=== PATIENT | male | born 1960 ===

== ENCOUNTER 2024-11-06 08:45 | Emergency (ER) | payer OTHER, SELFPAY ==
[2024-11-06 08:48] VITALS: BP 143/74
--- NOTE | 2024-11-06 09:43 | ED.GENMED ---
History of Present Illness
<Marsha Parry PA-C - Last Filed: 11/06/24 16:55>
General
Chief Complaint: Skin Problem
Source: patient
Exam Limitations: none
Time Seen by Provider: 11/06/24 09:27
History of Present Illness
History of Present Illness:
64yoM with a history of type 2 diabetes presenting for evaluation of right groin pain. Symptoms initially began 4 days ago and have progressively worsened. He was seen by his PCP yesterday and was told that he has an abscess and cellulitis and was
advised to go to the ED for evaluation. Patient states the surrounding redness has expanded since yesterday. He is having significant pain with movement of the R hip. He denies any fevers, chills, body aches, or difficulty urinating. Blood sugars
have reportedly been controlled at home.
Phy Exam
<Marsha Parry PA-C - Last Filed: 11/06/24 16:55>
General Physical Exam
General Presentation: well appearing and no apparent distress
General age: appears stated age
General Skin: warm and dry
General Habitus: normal
General Mental: alert
ENT Exam
ENT Exam: normocephalic
Pulmonary Exam
Pulmonary Exam: no respiratory distress
Gastrointestinal Exam
Gastrointestinal Exam: non tender, soft and non distended
Neurological Exam
Neurological Exam: alert
Skin Exam
Skin Exam: warm/dry and other (Focal area of swelling to the R inguinal region with central fluctuance consistent with an abscess. There is some surrounding cellulitis present in the mid thigh. No perineal involvement. No crepitus or pain out of
proportion. )
Psychiatric Exam
Psychiatric Exam: normal mood/affect
Course
<Marsha Parry PA-C - Last Filed: 11/06/24 16:55>
Orders/Labs/Results
Orders:
Orders
11/06/24 09:38
CT Pelvis With Iv Contrast Urgent
Comment:
Reason For Exam: R groin abscess
11/06/24 09:52
Complete Blood Count/With Diff Urgent
Comprehensive Metabolic Panel Urgent
11/06/24 11:46
Piperacillin/Tazo 4.5 Gram [Zosyn] 4.5 gram in 100 ml IV NOW
11/06/24 13:08
Wound Culture [Wound/Abscess/Other Culture] Urgent
MIKE Source: Abscess
Specimen Description:
Date Specimen was Collected: 11/06/24
Time Specimen was Collected: 13:03
Comment: R groin
Abnormal Lab Results
11/06/24
09:52
RBC 4.51 L 10^6/uL
(4.70-6.10)
Hgb 12.7 L g/dL
(13.0-18.0)
MCHC 31.9 L g/dL
(33.0-37.0)
MPV 10.5 H fL
(7.4-10.4)
Absolute Monos (auto) 0.9 H 10^3/uL
(0.1-0.6)
Lymphocytes % 17.6 L %
(20.5-51.1)
Monocytes % 10.4 H %
(1.7-9.3)
Glucose 123 H mg/dl
(70-99)
Total Bilirubin 1.4 H mg/dl
(0.2-1.3)
11/06/24 09:52
11/06/24 09:52
Vital Signs
Initial and Last Documented VS:
Initial Vital Signs
Temp Pulse Resp BP Pulse Ox
98.8 F 89 16 143/74 99
11/06/24 08:48 11/06/24 08:48 11/06/24 08:48 11/06/24 08:48 11/06/24 08:48
Last Documented Vital Signs
Temp Pulse Resp BP Pulse Ox
98.8 F 79 16 138/80 100
11/06/24 08:48 11/06/24 12:07 11/06/24 08:48 11/06/24 12:07 11/06/24 12:07
<Chema Ventura PA-C - Last Filed: 11/09/24 14:24>
Orders/Labs/Results
Orders:
Orders
11/06/24 09:38
CT Pelvis With Iv Contrast Urgent
Comment:
Reason For Exam: R groin abscess
11/06/24 09:52
Complete Blood Count/With Diff Urgent
Comprehensive Metabolic Panel Urgent
11/06/24 11:46
Piperacillin/Tazo 4.5 Gram [Zosyn] 4.5 gram in 100 ml IV NOW
11/06/24 13:08
Wound Culture [Wound/Abscess/Other Culture] Urgent
MIKE Source: Abscess
Specimen Description:
Date Specimen was Collected: 11/06/24
Time Specimen was Collected: 13:03
Comment: R groin
Abnormal Lab Results
11/06/24
09:52
RBC 4.51 L 10^6/uL
(4.70-6.10)
Hgb 12.7 L g/dL
(13.0-18.0)
MCHC 31.9 L g/dL
(33.0-37.0)
MPV 10.5 H fL
(7.4-10.4)
Absolute Monos (auto) 0.9 H 10^3/uL
(0.1-0.6)
Lymphocytes % 17.6 L %
(20.5-51.1)
Monocytes % 10.4 H %
(1.7-9.3)
Glucose 123 H mg/dl
(70-99)
Total Bilirubin 1.4 H mg/dl
(0.2-1.3)
11/06/24 09:52
11/06/24 09:52
Vital Signs
Initial and Last Documented VS:
Initial Vital Signs
Temp Pulse Resp BP Pulse Ox
98.8 F 89 16 143/74 99
11/06/24 08:48 11/06/24 08:48 11/06/24 08:48 11/06/24 08:48 11/06/24 08:48
Last Documented Vital Signs
Temp Pulse Resp BP Pulse Ox
98.8 F 79 16 138/80 100
11/06/24 08:48 11/06/24 12:07 11/06/24 08:48 11/06/24 12:07 11/06/24 12:07
Procedures
<Marsha Parry PA-C - Last Filed: 11/06/24 16:55>
Incision/Drainage/Joint Aspiration
Right Groin:
Anethesia: 1% Lidocaine with Epi
Preparation: cleaned with Betadine
Type of procedure: incise and drain
Nature of site: abscess
Description of abscess: greater than 3cm
Loculations broken up: Yes
How much fluid was obtained?: large amount
Fluid description: purulent and foul smelling
Treatment: packed with gauze
<Marsha Parry PA-C - Last Filed: 11/06/24 16:55>
MDM/Problems Addressed
Differential Diagnosis Includes:
64yoM here with R groin pain and swelling. Hx of well controlled diabetes. Denies fevers, chills, or other systemic symptoms. VSS. He is well appearing in no distress. There is evidence of an abscess on exam with some surrounding cellulitis. No
perineal involvement or signs of NSTI on exam.
Initial ED plan: Check CBC, CMP, and CT pelvis.
<Chema Ventura PA-C - Last Filed: 11/09/24 14:24>
MDM/Problems Addressed
Differential Diagnosis Includes:
64yoM here with R groin pain and swelling. Hx of well controlled diabetes. Denies fevers, chills, or other systemic symptoms. VSS. He is well appearing in no distress. There is evidence of an abscess on exam with some surrounding cellulitis. No
perineal involvement or signs of NSTI on exam.
Initial ED plan: Check CBC, CMP, and CT pelvis.
Addendum:
11/09/2024 1423:
Wound culture reveals positive for Pseudomonas and Proteus. Contacted and made aware of findings. Bacteria appear susceptible to antibiotics. Recommend continuation of this and following up with primary care doctor. Return precautions
given. All questions answered.
Signed: Chema Ventura PA-C
<Marsha Parry PA-C - Last Filed: 11/06/24 16:55>
*Critical Care Note
Total Time (30-74mins, 75-104mins- exclusive of procedures): Not Applicable
<Marsha Parry PA-C - Last Filed: 11/06/24 16:55>
Update Note
Update Note:
Labs overall unremarkable including normal white count. Glucose is 123. CT shows a subcutaneous fluid collection within the soft tissues measuring 4.2 cm in greatest dimension. No soft tissue gas or perineal abscess on CT. I&D performed at
bedside with return of copious amounts of purulent drainage. Wound culture sent. Dose of IV Zosyn given in ED. Discussed options of observation in the hospital vs. trial of p.o. antibiotics. Patient prefers to be discharged at this time. He was
started on a course of Keflex and Bactrim. He was instructed to remove packing in 48 hours. Advised close follow-up with PCP and general surgery. Strict ED return precautions discussed. Patient discharged in stable condition.
ED Attending Note
<Marsha Parry PA-C - Last Filed: 11/06/24 16:55>
-
Portions of this chart may have been created with voice recognition software.� Occasional wrong word or��sound alike� substitutions may have occurred due to the inherent limitations of voice recognition software.
Discharge Plan
Departure
Patient Disposition: Home (Routine Discharge)
Date of Disposition: 11/06/24
Time of Disposition: 12:50
Patient with high blood pressure during this ER visit?: Yes
Discharge Problem:
Abscess of right groin
Instructions: Skin Abscess
Prescriptions:
New
cephalexin 500 mg capsule
500 mg PO Q6H 7 Days Qty: 28 0RF
sulfamethoxazole-trimethoprim [Bactrim DS] 800-160 mg tablet
1 tab PO BID Qty: 14 0RF
Referrals:
Simone Forrest DO [Family Provider] -
Mohinder Ventura MD [Active] -
Activity Restrictions/Additional Instructions:
Take antibiotics as prescribed. Remove packing in 48 hours.
Please follow-up with your family doctor on Saturday as well as general surgery.
Monitor the area closely and return to the ER immediately with any worsening symptoms, spreading redness, fevers, or chills.
Interventions
Interventions:
*Risk Screen - Suicide Last Done: 11/06/24 08:48
*General Assessment Last Done: 11/06/24 08:48
*Neglect/Abuse Screening Last Done: 11/06/24 08:48
ED- Fall Risk Assessment Last Done: 11/06/24 13:13
*ED COVID-19 Vaccine History Last Done: 11/06/24 13:16
*Nursing Disposition Last Done: 11/06/24 13:14
ED-Skin Assessment Last Done: 11/06/24 13:12
Discharge Date and Time
Discharge Date/Time: 11/06/24 13:16
Print Language: TANZANIAN
[2024-11-06 09:47] VITALS: BMI 30.5
[2024-11-06 10:00] LABS: % Basophils 0.2 % (0-2); % Eosinophils 1.8 % (0-6); % Immature Granulocytes 0.4 % (0-0.5); % Lymphocytes 17.6 % (20.5-51.1); % Monocytes 10.4 % (1.7-9.3); % Neutrophils 69.6 % (42.2-75.2); Absolute Eosinophils 0.2 10^3/uL (0-0.7); Absolute Lymphocytes 1.5 10^3/uL (1.2-3.4); Absolute Monocytes 0.9 10^3/uL (0.1-0.6); Absolute Neutrophils 5.8 10^3/uL (1.4-6.5); Hematocrit 39.8 % (39.0-52.0); Hemoglobin 12.7 g/dL (13.0-18.0); Mean Corp Hgb Conc. 31.9 g/dL (33.0-37.0); Mean Corpuscular Hgb 28.2 pg (27.0-31.0); Mean Corpuscular Volume 88.2 fL (80.0-94.0); Mean Platelet Volume 10.5 fL (7.4-10.4); Nucleated Red Blood Cells % 0 % (-); Platelet Count 201 10^3/uL (130-400); Red Blood Cell Count 4.51 10^6/uL (4.70-6.10); Red Cell Dist. Width 13.4 % (11.5-14.5); White Blood Cell Count 8.3 10^3/uL (4.8-10.8)
[2024-11-06 10:12] LABS: ALT (SGPT) 17 U/L (0-50); AST (SGOT) 20 U/L (17-59); Albumin 4.2 g/dl (3.5-5.0); Alkaline Phosphatase 65 U/L (38-126); Blood Urea Nitrogen 16 mg/dl (9-20); Calcium 8.9 mg/dl (8.4-10.2); Carbon Dioxide 27 mmol/L (22-30); Chloride 102 mmol/L (98-107); Estimated Creatinine Clearance > 125 ml/min; Glucose 123 mg/dl (70-99); Potassium 4.5 mmol/L (3.5-5.1); Sodium 137 mmol/L (135-145); Total Bilirubin 1.4 mg/dl (0.2-1.3); Total Protein 6.8 g/dl (6.3-8.2); eGFR > 60.00
[2024-11-06] MEDS: ZOSYN 100 IV (12:03)
[2024-11-06 12:07] VITALS: BP 138/80
== END 2024-11-06 13:16 | disposition home or self-care (01) ==
LOC: EMR 08:45
PROVIDERS: Physician Assistant; EMERGENCY PHYSICIAN Emergency Medicine; FAMILY PHYSICIAN Family Medicine
DX: L02.214 Cutaneous abscess of groin (principal); E11.9 Type 2 diabetes mellitus without complications
CPT/HCPCS: 99284; 10060; 96374; 72193; 80053; 85025; 87070; 87077; 87186; 87205; Q9967